=== PATIENT | male | born 1940 | race Caucasian/White ===

== ENCOUNTER 2019-05-02 08:13 | Outpatient (CLI) | payer MEDICARE, SELFPAY ==
[2019-05-02 09:13] LABS: Estimated Glomerular Filt Rate 25
[2019-05-02 09:54] LABS: Alanine Aminotransferase 21 U/L (4-50); Albumin Level 4.1 g/dL (3.5-5.1); Alkaline Phosphatase 92 U/L (38-126); Aspartate Amino Transferase 28 U/L (17-59); Bilirubin,Total 0.5 mg/dL (0.2-1.3); Blood Urea Nitrogen 32 mg/dL (9-20); Calcium 9.4 mg/dL (8.4-10.2); Carbon Dioxide 28 mmol/L (22-30); Chloride 106 mmol/L (98-107); Estimated Glomerular Filt Rate 28; Glucose 135 mg/dL (75-110); Potassium 5.2 mmol/L (3.4-5.0); Sodium 139 mmol/L (137-145)
== END 2019-05-02 08:14 | disposition home or self-care (01) ==
PROVIDERS: PCP Family Medicine; Visit Provider Internal Medicine Cardiovascular Disease
DX: I65.29 Occlusion and stenosis of unspecified carotid artery (principal); Z86.73 Personal history of transient ischemic attack (TIA), and cerebral infarction without residual deficits
CPT/HCPCS: 36415; 80053

== ENCOUNTER 2019-10-16 07:40 | Outpatient (RCR) | payer MEDICARE, SELFPAY ==
[2019-08-06 13:54] VITALS: BMI 30.4
== END 2019-11-04 23:59 | disposition home or self-care (01) ==
LOC: ANHWOC 07:40
PROVIDERS: PCP Family Medicine; Visit Provider Family Medicine
DX: Z51.89 Encounter for other specified aftercare (principal); E11.621 Type 2 diabetes mellitus with foot ulcer; L97.419 Non-pressure chronic ulcer of right heel and midfoot with unspecified severity
CPT/HCPCS: 99212; 99213; A9270; G0463

== ENCOUNTER 2020-01-02 08:10 | Outpatient (RCR) | payer MEDICARE, SELFPAY ==
[2019-11-05 00:02] VITALS: BMI 30.4
== END 2020-02-04 23:59 | disposition home or self-care (01) ==
LOC: ANHWOC 08:10
PROVIDERS: PCP Family Medicine; Visit Provider Family Medicine
DX: Z51.89 Encounter for other specified aftercare (principal); E11.621 Type 2 diabetes mellitus with foot ulcer; L97.419 Non-pressure chronic ulcer of right heel and midfoot with unspecified severity
CPT/HCPCS: 99212; G0108; G0463

== ENCOUNTER 2020-01-02 13:00 | Outpatient (RCR) | payer MEDICARE, SELFPAY ==
[2019-11-14 08:03] VITALS: BMI 30.4
[2019-11-14 08:04] VITALS: BMI 30.4
== END 2020-02-12 23:59 | disposition home or self-care (01) ==
LOC: ANHDMC 13:00
PROVIDERS: PCP Family Medicine; Visit Provider Physician Assistant
DX: E11.22 Type 2 diabetes mellitus with diabetic chronic kidney disease (principal); E11.65 Type 2 diabetes mellitus with hyperglycemia; Z71.3 Dietary counseling and surveillance; Z71.89 Other specified counseling
CPT/HCPCS: 97802; G0108

== ENCOUNTER → 2021-10-14 10:49 | Outpatient (CLI) | payer MEDICARE, SELFPAY ==
--- NOTE | ~2021-10-14 | XR_ITS ---
EXAMINATION: XR hand LT min 3V INDICATION: Left hand pain TECHNIQUE: Four views of the left hand are obtained. COMPARISON: None available FINDINGS: The bones are osteopenic which limits the sensitivity for fracture however none is seen. Mi ld deformity at the distal aspect of the second proximal phalanx has the appearance of an old fractur e. There is moderate osteoarthritis of multiple interphalangeal joints and at the second and third me tacarpophalangeal joints. The soft tissues are unremarkable. IMPRESSION: 1. No acute osseous abnormality. Reviewed, dictated and finalized at location B.
== END ==
PROVIDERS: PCP Family Medicine; Visit Provider Family Medicine
DX: M79.642 Pain in left hand (principal)
CPT/HCPCS: 73130

== ENCOUNTER 2022-05-04 07:57 | Outpatient (CLI) | payer MEDICARE, SELFPAY ==
--- NOTE | ~2022-05-04 | CT_ITS ---
EXAMINATION: CT abdomen pelvis wo con DATE: 05/04/2022 08:23 INDICATION: Dysuria. Nephrolithiasis. Hematuria. TECHNIQUE: Computed tomography (CT) of the abdomen and pelvis was performed without intravenous contr ast. Automated exposure control and iterative reconstruction technique were employed. Exam dose: 583 .42 mGy-cm total exam DLP. COMPARISON: None. FINDINGS: There is elevation of the right diaphragm and associated right basilar atelectasis. Small presumably benign lymph node of the minor fissure. There is minimal atelectasis at the lateral left lung base involving the lingula and left lower lobe. Normal heart size. Coronary artery calcifications. No pericardial or pleural effusion. Status post cholecystectomy. No hepatic, splenic, pancreatic or adrenal space-occupying mass lesion i s detected. Small scarred right kidney. Approximately 7 nonobstructing left renal calculi measuring from pinpoint size up to 5 mm. Approximately 8 x 12 mm calculus is situated at the dependent aspect of the urinary bladder near the right ureterovesical junction. This calculus has attenuation of 1430 Hounsfield units. Possible right ureterocele. The urinary bladder is distended up to the level of the umbilicus. Moderate prostate enlargement. Prostate calcifications. There is extensive atherosclerotic calcification but normal caliber of the abdominal aorta. No intrap eritoneal or retroperitoneal or pelvic mass lesion or adenopathy or ascites. There is a prominent amount of fecal material within the colon. No bowel obstruction or intraperitone al free air. Chronic appearing mild anterior wedging of T12. 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 Prominent degenerative changes apophyseal joints in the lower lumbar and lumbosacral area with associ ated grade 1 anterolisthesis at L4-5. Moderately severe degenerative disc disease at L4-5. No suspicious osteolytic or osteoblastic lesions are noted. IMPRESSION: Chronic small scarred right kidney Left nephrolithiasis 8 x 12 mm urinary bladder calculus Moderate prostate enlargement and calcification Status post cholecystectomy Reviewed, dictated and finalized at Location A. Reviewed, dictated and finalized at location B.
== END 2022-05-04 07:58 | disposition home or self-care (01) ==
PROVIDERS: PCP Family Medicine; Visit Provider Nurse Practitioner
DX: N20.0 Calculus of kidney (principal); R31.0 Gross hematuria; N21.0 Calculus in bladder; N40.0 Benign prostatic hyperplasia without lower urinary tract symptoms
CPT/HCPCS: 74176

== ENCOUNTER 2022-06-09 10:22 | Outpatient (CLI) | payer MEDICARE, SELFPAY ==
--- NOTE | ~2022-06-09 | XR_ITS ---
Supine and upright views of the abdomen Clinical history: Kidney stone Findings: Bowel gas pattern is nonspecific. No evidence for obstruction or free air. 4 mm left renal stone present. 1.2 cm probable calcification present in the pelvis. Osseous structures are intact. Impression: 4 mm left renal stone. 1.2 cm calcification in the pelvis. This is consistent with urinary bladder stone versus right UVJ st one based on prior CT scan dated 05/04/2022 Reviewed, dictated and finalized at location . Impression: 4 mm left renal stone. 1.2 cm calcification in the pelvis. This is consistent with urinary bladder sto ne versus right UVJ stone based on prior CT scan dated 05/04/2022
== END 2022-06-09 10:23 | disposition home or self-care (01) ==
PROVIDERS: PCP Family Medicine; Visit Provider Urology
DX: N20.0 Calculus of kidney (principal)
CPT/HCPCS: 74018

== ENCOUNTER 2022-06-14 13:09 | Outpatient (CLI) | payer MEDICARE, SELFPAY ==
--- NOTE | 2022-06-14 13:22 | ECG_ITS ---
Measurements Intervals [place] Rate: 66 P: 10 WA: 153 QRS: -19 QRSD: 80 T: 53 QT: 410 QTc: 432 Interpretive Statements SINUS RHYTHM LOW QRS VOLTAGE IN PRECORDIAL LEADS [QRS DEFLECTION < 1.0 mV IN CHEST LEADS] POSSIBLE ANTERIOR MYOCARDIAL INFARCTION [30 ms Q WAVE IN V3/V4, OR R < 0.2 mV IN V4], OF INDETERMINATE AGE NO PREVIOUS ECG AVAILABLE FOR COMPARISON Electronically Signed On 06-14-2022 14:43:59 CDT by Iram Wolf M.D.
[2022-06-14 14:58] LABS: INR 1.1; Prothrombin Time 13.9 Seconds (11.1-14.7)
[2022-06-14 14:59] LABS: Partial Thromboplastin Time 29.2 SECONDS (22.3-36.8)
[2022-06-14 15:09] LABS: Anion Gap 6 mmol/L (8-16); Blood Urea Nitrogen 24 mg/dL (9-20); Calcium 8.8 mg/dL (8.4-10.2); Carbon Dioxide 30 mmol/L (22-30); Chloride 101 mmol/L (98-107); Estimated Glomerular Filt Rate 39; Glucose 277 mg/dL (65-110); Sodium 137 mmol/L (137-145)
== END 2022-06-14 13:10 | disposition home or self-care (01) ==
PROVIDERS: Anesthesiology; PCP Family Medicine; Visit Provider Urology
DX: E11.22 Type 2 diabetes mellitus with diabetic chronic kidney disease (principal); N18.4 Chronic kidney disease, stage 4 (severe); Z12.9 Encounter for screening for malignant neoplasm, site unspecified; N20.1 Calculus of ureter
CPT/HCPCS: 36415; 80048; 85610; 85730; 87077; 87086; 87186; 93005

== ENCOUNTER 2022-06-17 00:30 | Day surgery (SDC) | payer MEDICARE, SELFPAY ==
[2022-06-14 08:21] VITALS: BMI 28.5
--- NOTE | 2022-06-14 08:36 | PC.NURSE ---
PRE-OP INSTRUCTIONS, PLEASE READ CAREFULLY Report to the Outpatient Waiting Room, entrance under the green pavilion located off [facility], at time _0930_ on date _06/17/22_. Planned Procedure Time: _1130_. Time changes happen often and if your time is changed the preop area will call you the afternoon before. - You and your visitor will be asked to self-screen and do not enter if you have any COVID symptoms. - A mask is optional within the hospital at this time. Patients may have clear liquids (water, carbonated beverages, clear teas, apple juice) until 3 hours prior to surgery with a maximum of 20 ounces. - No food from midnight until time of surgery - Infants may have breast milk until 4 hours before surgery, formula 6 hours prior to surgery. - Children will be allowed to drink immediately following surgery. If applicable, please bring a bottle or sippy cup to assist with drinking. Juice, water, soda, and popsicles are readily available. For infants on formula, please bring formula the day of surgery. Pacifiers are allowed. Take the following medications with a SIP of water the morning of surgery: _*1/2 OF AM INSULIN DOSE, GABAPENTIN___ DO NOT STOP ANY OF YOUR OTHER PRESCRIPTION MEDICATIONS PRIOR TO SURGERY ?EXCEPT THE FOLLOWING Medications to discontinue _ASPIRIN PER DR. ELDER'S INSTRUCTIONS_ Medications to discontinue per ANESTHESIA - _VITAMINS, PROBIOTIC & SUPPLEMENTS 3 DAYS PRIOR TO SURGERY, Date to take last dose 06/13/22_ Please no make-up, nail cook islander, hairspray, perfume, deodorant, or body powder the day of surgery. No jewelry (including any body piercings) or valuables the day of surgery, leave them at home. Please take a shower or bath the night before, or the morning of, surgery with an antibacterial soap. Wear comfortable, loose fitting clothing. - Jewelry must be removed prior to entering the operating room. Rings and piercings that are not removed may be cut off. - The hospital will not accept responsibility for valuables. - Please leave all valuables, including medications, at home the day of surgery. If you are going home after surgery, a licensed route sales delivery driver must drive you home. - NO public transportation without another adult if you receive anesthesia. - We recommend that an adult stay with you for 24 hours following discharge. - We also recommend that you do not drive, make important decision, drink alcoholic beverages, or take any drugs that were not prescribed by your health care provider for at least 24 hours after your discharge time. Follow any additional instructions given to you from your surgeon. If you or anyone in your household have experienced Covid symptoms in the past week, please notify your surgeon or the nurse liaison at the phone number below for possible testing. Telephone instructions given to _PATIENT_and asked if any additional questions and then verbalized understanding. Patient advised to call surgeon office or pre surgery nurse liaison [phone] if any additional questions.
[2022-06-17] VITALS (9 sets, daily range): BP systolic 113–142; BP diastolic 40–76; PULSE 55–68; RESP 10–18; TEMP 36.7; O2SAT 97–100
--- NOTE | ~2022-06-17 | XR_ITS ---
EXAMINATION: XR fluoroscopy no charge INDICATION: Bladder stone TECHNIQUE: Three intraoperative fluoroscopic images are submitted for review. Total fluoroscopic time was 2.3 seconds. COMPARISON: KUB, 06/09/2022 FINDINGS: Fluoroscopic image demonstrates a stone presumed to be in the urinary bladder. No definite stones or stone fragments are identified on the final submitted images. IMPRESSION: 1. Please refer to procedure note for full details. Reviewed, dictated and finalized at location B.
--- NOTE | 2022-06-17 10:14 | WPDHPUPDATE1 ---
History and Physical Update Update Date/Time: 06/17/22 10:14 History and Physical has been reviewed, including an updated exam of the patient. There are NO changes in the patient's condition. Risks, benefits, and alternatives have been discussed and questions answered. Patient agrees to proceed with procedure.
[2022-06-17] MEDS: LACTATED RINGERS 1,000 ML 30 ML IV CONT (10:30)
--- NOTE | 2022-06-17 10:51 | WPDANESEPPF ---
Anes - Initial Pre Proc Eval Procedure: Operation Date: 06/17/22 12:00 Proposed Procedures p Cystoscopy, Right Retrograde Pyelogram, Right Ureteroscopy, Right Stone Extraction, Possible Right Stent Placement, Holmium Laser - Thomas Hinojosa MD Date/Time: 06/17/22 10:51 Surgeon: Thomas Hinojosa MD Pre Op Diagnosis: right ureteral stone Patient Data Age: 81 Gender: M Height: 1.78 m Weight: 90.1 kg Last Vital Signs Temp 36.7 C 06/17/22 10:00 Pulse 67 06/17/22 10:00 Resp 16 06/17/22 10:00 BP 142/70 H 06/17/22 10:00 Pulse Ox 100 06/17/22 10:00 O2 Del Method Room Air 06/17/22 10:00 Allergies Allergy/AdvReac Type Severity Reaction Status Date / Time venlafaxine [From Effexor] AdvReac Intermediate hallucinati Verified 06/17/22 10:27 ons Home Medications Medication Instructions Recorded Confirmed Type alpha lipoic acid 200 mg capsule 200 mg PO TID 08/06/19 06/17/22 History ascorbic acid (vitamin C) 500 mg 500 mg PO DAILY 09/12/19 06/17/22 History capsule cholecalciferol (vitamin D3) 10 400 unit PO DAILY 09/12/19 06/17/22 History mcg (400 unit) capsule folic acid 1 mg tablet 1 mg PO DAILY 09/12/19 06/17/22 History magnesium oxide 500 mg tablet 500 mg PO DAILY 09/12/19 06/17/22 History mecobalamin (vitamin B12) 1,000 1,000 mcg PO DAILY 09/12/19 06/17/22 History mcg chewable tablet multivitamin with minerals-folic 0.4 mg PO DAILY 09/12/19 06/17/22 History acid 0.4 mg tablet (Adult One Daily Multivitamin) rosuvastatin 40 mg tablet 40 mg PO QPM 09/12/19 06/17/22 History pen needle, diabetic 32 gauge x #50 ea 11/28/19 06/17/22 History 1/4 (Novofine 32) blood sugar diagnostic #400 ea 04/10/20 06/17/22 Rx blood-glucose meter #1 ea 04/10/20 06/17/22 Rx lancets 33 gauge #400 ea 04/10/20 06/17/22 Rx flash glucose scanning reader #1 ea 02/01/21 06/17/22 Rx (FreeStyle Paul 2 [place]) blood sugar diagnostic (OneTouch See Rx Instructions .Route 05/31/21 06/17/22 Rx Ultra Test strips) .COMPLEX #200 strips flash glucose sensor (FreeStyle #6 ea 03/16/22 06/17/22 Rx Paul 2 Sensor kit) aspirin 81 mg tablet,delayed 81 mg PO DAILY 03/29/22 06/17/22 History release (Adult Aspirin Regimen) polyethylene glycol 3350 17 gram 17 g PO DAILY PRN Constipation 03/30/22 06/17/22 History oral powder packet (Miralax) sennosides 8.6 mg tablet (senna) 8.6 mg PO BID PRN Constipation 03/30/22 06/17/22 History sitagliptin phosphate 50 mg tablet 50 mg PO DAILY 03/30/22 06/17/22 History (Januvia) tamsulosin 0.4 mg capsule 0.4 mg PO DAILY 03/30/22 06/17/22 History gabapentin 400 mg capsule 400 mg PO DIRECTED #450 caps 04/25/22 06/17/22 Rx insulin lispro 100 unit/mL 40 unit (0.4 mL) subcut DAILY #45 05/11/22 06/17/22 Rx subcutaneous pen (Humalog KwikPen mL (U-100) Insulin) telmisartan 80 mg tablet See Rx Instructions .Route 05/30/22 06/17/22 Rx .COMPLEX #90 tabs allopurinol 300 mg tablet 300 mg PO DAILY #90 tabs 06/13/22 06/17/22 Rx glucagon 1 mg/0.2 mL subcutaneous 1 mg subcut ONCE PRN LOW BLOOD 06/14/22 06/17/22 History auto-injector (Gvoke HypoPen SUGAR 2-Pack) insulin degludec 200 unit/mL (3 30 unit subcut QAM 06/14/22 06/17/22 History mL) subcutaneous pen (Tresiba FlexTouch U-200 insulin) Patient hx anesthesia problems: none Family hx anesthesia problems: none Results Review: All pre-operative results and documents have been reviewed as part of the pre-operative evaluation. PMFSH Past Medical History Medical History Actinic keratoses Benign hypertensive kidney disease with chronic kidney disease Carotid artery plaque Chronic kidney disease, stage 4 (severe) COPD (chronic obstructive pulmonary disease) Emphysematous cystitis Hypertension Hyperuricemia Lumbosacral spondylosis without myelopathy Metabolic syndrome Mixed hyperlipidemia Osteoarthrosis, unspecified whether gen
[2022-06-17 11:15] LABS: Glucose Point of Care 155 mg/dl (65-105)
[2022-06-17] MEDS: ceFAZolin 2 GM/D5W 50 ML 2 GM/50 ML BAG IVPB (11:49)
[2022-06-17] MEDS: LIDOCAINE HCL 2% GEL UROJET 10 ML PKG MUCOUS MEM (11:59)
--- NOTE | 2022-06-17 12:21 | P.OP_ITS ---
Procedure Note - Detailed Date of Procedure 06/17/22 Pre-op Diagnosis right ureteral stone Post-op Diagnosis Other (Bladder calculus 12 mm) Procedure Performed Cystoscopy with lithotripsy of bladder calculus, right distal ureteroscopy Surgeon Thomas Hinojosa MD Anesthesia General Description of Procedure Patient is taken to the operative suite correctly identified. Once anesthesia was obtained was placed in dorsal lithotomy position and prepped and draped usual sterile fashion. Twenty-two Telugu scope was inserted into the bladder. There is no tumors noted. The stone which was its presumed to be in the right ureteral orifice is actually in the bladder. We then used a large [employer] laser fiber to fragment the stone in multiple small pieces. These were retrieved sent for analysis. A distal right ureteroscopy was then performed confirm no residual stones in the right ureter. There was no tumors or irregularities noted. The bladder was drained this is a very capacious bladder. 2% viscous lidocaine was inserted into the urethra patient is taken recovery stable condition. This completes dictation please send a copy of the op note to my office. Drains No Packing No Pathology Yes Complications No immediate complications Condition Stable Disposition PACU
[2022-06-17 12:31] LABS: Glucose Point of Care 125 mg/dl (65-105)
== END 2022-06-17 14:35 | disposition home or self-care (01) ==
PROVIDERS: PCP Family Medicine; Visit Provider Urology
PROC: (CPT 52352; principal; 2022-06-17 12:00)
DX: N21.0 Calculus in bladder (principal); I12.9 Hypertensive chronic kidney disease with stage 1 through stage 4 chronic kidney disease, or unspecified chronic kidney disease; E11.22 Type 2 diabetes mellitus with diabetic chronic kidney disease; N18.4 Chronic kidney disease, stage 4 (severe); E11.40 Type 2 diabetes mellitus with diabetic neuropathy, unspecified; J44.9 Chronic obstructive pulmonary disease, unspecified; E78.2 Mixed hyperlipidemia; Z79.82 Long term (current) use of aspirin; Z79.84 Long term (current) use of oral hypoglycemic drugs; Z79.4 Long term (current) use of insulin; Z98.1 Arthrodesis status
CPT/HCPCS: 52317; 52351; 82365; 82948; 88300; 99199; C1769; J0690; J1100; J2405; J2704; J3010; J7120

== ENCOUNTER 2022-11-01 13:00 | Outpatient (RCR) | payer MEDICARE, SELFPAY | END 2022-11-01 16:21 | disposition home or self-care (01) | LOC: ANHDMC 13:00 | PROVIDERS: PCP Family Medicine; Visit Provider Nurse Practitioner Family | DX: E11.65 Type 2 diabetes mellitus with hyperglycemia (principal); Z79.4 Long term (current) use of insulin; Z71.89 Other specified counseling | CPT/HCPCS: G0108 ==

== ENCOUNTER 2022-11-21 14:04 | Outpatient (CLI) | payer MEDICARE, SELFPAY ==
--- NOTE | ~2022-11-21 | US_ITS ---
EXAMINATION: US carotid duplex BI DATE: 11/21/2022 14:58 INDICATION: Carotid stenosis TECHNIQUE: Grayscale, color Doppler, and pulsed Doppler images of the cervical carotid arteries were obtained. The degree of vessel stenosis is placed in one of the following categories: normal, <50%, 5 0-69%, >=70% but less than near-occlusion, near-occlusion, or total occlusion. Note that percent sten osis relative to normal distal artery lumen diameter is indirectly measured from velocity measurement s as described by Pieter, et al. Radiology 2003; 229:340-346. COMPARISON: None. FINDINGS: RIGHT: The right common carotid artery (CCA) peak systolic velocity (PSV) is 103 cm/s. The right internal ca rotid artery (ICA) PSV is 128 cm/s. The right ICA end-diastolic velocity (EDV) is 25 cm/s. The right ICA/CCA PSV ratio is 1.3. Grayscale and color Doppler images yield an estimate of 50-69% diameter red uction from plaque in the ICA. The external carotid artery (ECA) PSV is 100 cm/s. There is antegrade flow in the right vertebral artery. LEFT: The left CCA PSV is 131 cm/s. The left ICA PSV is 75 cm/s. The left ICA EDV is 15 cm/s. The left ICA/ CCA PSV ratio is 0.6. Grayscale and color Doppler images yield an estimate of <50% diameter reduction from plaque in the ICA. The ECA PSV is 73 cm/s. There is antegrade flow in the left vertebral artery . IMPRESSION: 1. 50-69% stenosis in the right internal carotid artery. 2. <50% stenosis in the left internal carotid artery. Reviewed, dictated and finalized at location A.
== END 2022-11-21 14:05 | disposition home or self-care (01) ==
PROVIDERS: PCP Family Medicine; Visit Provider Nurse Practitioner
DX: I65.23 Occlusion and stenosis of bilateral carotid arteries (principal)
CPT/HCPCS: 93880

== ENCOUNTER 2022-12-14 12:30 | Outpatient (RCR) | payer MEDICARE, SELFPAY ==
--- NOTE | 2022-10-19 14:51 | OTOPEVAL1 ---
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 He reports difficulties with gripping a steering wheel, buttoning his shirt, and write. He is in the process of hand writing 2 novels. He states he experiences hand cramps with prolonged hand use, for writing or driving, for instance. He is right handed. He lives at home by himself and does his own cooking and cleaning. He states he is able to do these tasks, but it takes a long time. Reported Pain Level Pain Score 0: Self Report Assessment OT Clinical Summary Patient referred to outpatient OT with a functional decline in bilateral hand use for ADLs. He presents with gross weakness that limits functional gripping and coordination. Skilled OT indicated to maximize functional hand use through therapeutic exercises and activities, strengthening, HEP instruction and progression, adaptive ADL techniques, and functional coordination activities. Plan of Care Interventions Therapeutic Exercise,Therapeutic Activities,Self- Care/Home Management OT Services Indicated Yes Treatment Frequency and 2x/week for 3 weeks Duration These treatments will address the objective and functional deficits as defined above. The patient will be advanced safely and appropriately in order for the patient to progress towards his/her prior level of function. Additional exercises will be introduced and as well as a comprehensive home exercise program upon discharge, if needed, ?to ensure carryover of functional gains achieved in the clinic. This treatment plan has been reviewed and agreement upon by the patient.
--- NOTE | 2022-10-19 14:52 | OPREHPOC ---
Outpatient Therapy Plan of Care This is a Multidisciplinary Plan of Care that may contain components documented by all disciplines (PT, OT, and ST.) OT Problem 1 OT Problem #1 Knowledge Deficit OT Goal 1 Goal 1. Patient to be independent with instructed materials. Target Visit 6 OT Problem 2 OT Problem #2 Impaired Range of Motion OT Goal 1 Goal 1. Patient to increase functional ROM of bilateral hands to be able to make a composite fist as measured by the finger tips being able to touch the palms. 2. Patient to increase functional ROM of bilateral thumbs as measured by being able to touch the thumb to the base of digit V. Target Visit 6 OT Problem 3 OT Problem #3 Impaired Strength OT Goal 1 Goal 1. Increase (R) veterinary livestock inspector strength to 41 lbs. 2. Increase (L) veterinary livestock inspector strength 45 lbs. 3. Increase gross wrist flexion/extension strength as measured by patient being able to complete wrist flexion/extension against gravity with 2 lb. free weights x20 reps with good technique. Target Visit 6 OT Problem 4 OT Problem #4 Impaired Coordination OT Goal 1 Goal 1. Be able to complete the 9-hole peg test with the right hand in 27 seconds or less. 1. Be able to complete the 9-hole peg test with the left hand in 30 seconds or less. Target Visit 6
--- NOTE | 2022-10-26 15:50 | PCOTNOTE ---
Call was made on this date and voice message left to inform patient that he missed his last Monday appointment and his appointment on this date. Patient was provided the number of the office if he needed to change the schedule or contact us further.
--- NOTE | 2022-11-11 13:21 | OTOPPROG ---
Assessment and note entered by JANNETH Le/Az, T Progress Update 11/11/22 Diagnosis Pain in bilateral hands Subjective Information Patient reports hand pain, weakness, and stiffness that limits his ability to supervisor grips objects and complete fine motor tasks. He has been working with therapy x4 weeks to work on functional strength and ROM of the hands. He feels that after he does his exercises his hands feel better, but they stiffen back up. He reports some temporary pain relief from the exercises. He states he continues to have difficulties with writing, buttons, and holding the steering wheel. Right hand ROM improved to normal limits. Left hand ROM improved, but he continues to have about 0.5 cm gap between the finger tips and the palm when attempting to make a fist. Right supervisor grips improved by 9 lbs. Left supervisor grips remained unchanged. Both hands improved by 4 seconds on the 9-hole peg test and are now scoring within functional limits for his age. Assessment OT Clinical Summary Patient referred to outpatient OT with a functional decline in bilateral hand use for ADLs. OT reassessment completed today and he is making progress with functional ROM and strength of the hands. Continued skilled OT indicated to maximize functional hand use through therapeutic exericses and activities, strengthening, HEP instruction and progression, adaptive ADL techniques, and functional coordination activities. Plan of Care Interventions Therapeutic Exercise,Therapeutic Activities,Self- Care/Home Management OT Services Indicated Yes Treatment Frequency and 1x/week for 5 weeks Duration These treatments will address the objective and functional deficits as defined above. The patient will be advanced safely and appropriately in order for the patient to progress towards his/her prior level of function. Additional exercises will be introduced and as well as a comprehensive home exercise program upon discharge, if needed, ?to ensure carryover of functional gains achieved in the clinic. This treatment plan has been reviewed and agreement upon by the patient.
--- NOTE | 2022-11-11 13:22 | OPREHPOC ---
Outpatient Therapy Plan of Care This is a Multidisciplinary Plan of Care that may contain components documented by all disciplines (PT, OT, and ST.) OT Problem 1 OT Problem #1 Knowledge Deficit OT Goal 1 Goal 1. Patient to be independent with instructed materials. ---OT POC UPDATE 11/11/22--- 1. Met, continue as HEP is progressed Target Visit 11 OT Problem 2 OT Problem #2 Impaired Range of Motion OT Goal 1 Goal 1. Patient to increase functional ROM of bilateral hands to be able to make a composite fist as measured by the finger tips being able to touch the palms. 2. Patient to increase functional ROM of bilateral thumbs as measured by being able to touch the thumb to the base of digit V. ---OT POC UPDATE 11/11/22--- 1. Met for the right hand, progressing with the left, continue goal 2. Met for the right hand, not met with the left, continue goal Target Visit 11 OT Problem 3 OT Problem #3 Impaired Strength OT Goal 1 Goal 1. Increase (R) concrete curer strength to 41 lbs. 2. Increase (L) concrete curer strength 45 lbs. 3. Increase gross wrist flexion/extension strength as measured by patient being able to complete wrist flexion/extension against gravity with 2 lb. free weights x20 reps with good technique. ---OT POC UPDATE 11/11/22--- 1. Met, upgrade to 50 lbs. 2. Not met, continue 3. Able to complete 10 before needing to rest, continue Target Visit 11 OT Problem 4 OT Problem #4 Impaired Coordination OT Goal 1 Goal 1. Be able to complete the 9-hole peg test with the right hand in 27 seconds or less. 1. Be able to complete the 9-hole peg test with the left hand in 30 seconds or less. ---OT POC UPDATE 11/11/22--- 1. Progressing, continue 2. Progressing, continue Target Visit 11
--- NOTE | 2022-12-14 13:18 | OTOPDC ---
Assessment and note entered by Jonathan Mendoza, JANNETH/Az, T Discharge Summary 12/14/22 Diagnosis Pain in bilateral hands Subjective Information Patient reports a decline in hand cramping. Overall feels like his progress has leveled out. Reports his hands just feel numb and he has troubles with dropping things. He feels that after he does his exercises his hands feel better, but they stiffen back up. He reports some temporary pain relief from the exercises. He states he continues to have difficulties with writing, buttons, and holding the steering wheel. Right hand ROM improved to normal limits. Left hand ROM improved, but he continues to have about 0.5 cm gap between the finger tips and the palm when attempting to make a fist. Right patient scheduler improved by 9 lbs. Left patient scheduler remained unchanged. Both hands improved by 4 seconds on the 9-hole peg test and are now scoring within functional limits for his age. Assessment OT Clinical Summary Patient referred to outpatient OT with a functional decline in bilateral hand use for ADLs. Second OT reassessment completed today. He has completed 9 sessions with OT. ROM of the hands has returned to functional limits. Trace Clerk strength has progressed to functional limits. He continues to have residual deficits with patient scheduler, stating he frequently drops items and has numbness. He has a long history of cervical surgeries and he is also diabetic. At this time he has met his maximum therapy benefits and is independent with HEP. Discharging today with HEP. Plan of Care OT Services Indicated No
== END 2022-12-14 13:42 | disposition home or self-care (01) ==
LOC: ANHOT 12:30
PROVIDERS: PCP Family Medicine; Visit Provider Nurse Practitioner
DX: M79.641 Pain in right hand (principal); M79.642 Pain in left hand
CPT/HCPCS: 97110; 97166; 99199

== ENCOUNTER 2024-08-21 11:48 | Outpatient (CLI) | payer MEDICARE, SELFPAY ==
--- NOTE | ~2024-08-21 | XR_ITS ---
Clinical Indication: Pleural effusion PA and lateral views of the chest: Comparison: None Findings: The lungs are clear, without evidence of focal consolidation or pleural effusion. There is elevation of the right hemidiaphragm. Cardiomediastinal silhouette is within normal limits. Bones and soft tissues are unremarkable. Impression: Clear lungs. Elevation of the right hemidiaphragm. Reviewed, dictated and finalized at location M. Impression: Clear lungs. Elevation of the right hemidiaphragm.
== END 2024-08-21 11:49 | disposition home or self-care (01) ==
LOC: GOSHIMG 11:48
PROVIDERS: PCP Nurse Practitioner; Visit Provider Nurse Practitioner
DX: J98.6 Disorders of diaphragm (principal); J90 Pleural effusion, not elsewhere classified
CPT/HCPCS: 71046